=== PATIENT | female | born 1950 | race African-American/Black ===

== ENCOUNTER 2018-08-13 16:21 | Outpatient (CLI) | payer OTHER, MEDICAID ==
[~2018-08-13 16:21] MED LIST: BUSP10TA3 PO; CELE200C PO; DULO60CA41 PO; LAMO200T2 PO; LISI40TA4 PO; LORA10TA7 PO; MAGN400T10 PO; NOR10 PO; PRO40 PO; QUET400T PO; TOPI200T PO; TRAMADOL HCL PO; TRAZ300T11 PO
== END 2018-08-13 19:55 | disposition home or self-care (01) ==
LOC: SRD 16:21
PROVIDERS: ATTEND Family Medicine
DX: S93.602A Unspecified sprain of left foot, initial encounter (principal); Z98.890 Other specified postprocedural states; X58.XXXA Exposure to other specified factors, initial encounter; Y93.89 Activity, other specified; Y92.89 Other specified places as the place of occurrence of the external cause; Y99.8 Other external cause status

== ENCOUNTER 2019-07-04 13:37 | Emergency (ER) | payer OTHER, MEDICAID ==
[~2019-07-04] VITALS: Ht 165.1 cm; Wt 77.1 kg
[2019-07-04 14:08] VITALS: BP_SYST 135
[2019-07-04] MEDS ORDERED: fentaNYL CITRATE/PF 100 MCG/2 ML AMP IM ONE (14:45)
[2019-07-04 17:46] VITALS: BP_SYST 118
== END 2019-07-04 17:46 | disposition home or self-care (01) ==
LOC: SED 13:37
DX: G89.29 Other chronic pain (principal); M25.561 Pain in right knee; Z88.6 Allergy status to analgesic agent; Z79.899 Other long term (current) drug therapy; Z96.651 Presence of right artificial knee joint
CPT/HCPCS: 73564; 96372; 99283; J3010